=== PATIENT | male | born 1990 | race Caucasian/White ===

== ENCOUNTER 2017-12-19 19:28 | Inpatient (IN) ==
[2017-12-20] MEDS ORDERED: Potassium Chlor 20 mEq Premix 20 MEQ/100 ML PIGGYBACK IV.SIG PRN ×6 (01:28)
[2017-12-20] MEDS ORDERED: Sodium Phosphate Inj 15 MMOL in Sodium Chlor 0.9% Inj 100 ML IV.SIG PRN (01:28)
[2017-12-20] MEDS ORDERED: Potassium Chlor 40 mEq Premix 40 MEQ/100 ML PIGGYBACK IV.SIG PRN ×2 (01:28)
[2017-12-20] MEDS ORDERED: Morphine Sulfate Inj 2 MG/ML Vial IV.PUSH PRN (01:35)
[2017-12-20] MEDS ORDERED: Acetaminophen 325 MG Tablet PO PRN (01:35)
[2017-12-20] MEDS ORDERED: Temazepam 15 MG Capsule PO PRN (01:35)
[2017-12-20] MEDS ORDERED: Bisacodyl 10 MG Supp RECTAL PRN (01:35)
[2017-12-20] MEDS: Insulin Regular (For Infusion) 100 UNIT in Sodium Chlor 0.9% Inj 99 ML IV.CONT PRN ×2 (02:06→12:53)
[2017-12-20] MEDS: Sod Chloride 0.9% Inj 1,000 ML IV.CONT SCH ×6 (02:12→21:42)
[2017-12-20] MEDS: Dextrose 5%/NaCl 0.9% Inj 1,000 ML IV.CONT SCH ×5 (02:12→22:33)
[2017-12-20] MEDS: Heparin - SQ 10,000 UNITS/ML Vial SQ SCH ×4 (02:44→21:42)
--- NOTE | 2017-12-20 02:45 | P.HPCC ---
History of Present Illness Primary Care Physician: UNKNOWN History of Present Illness: 27-year-old male with history of type 1 diabetes presented to the emergency room at [place] for an evaluation of nausea and vomiting that started around noon today. Patient has history of DKA and states symptoms feel similar. States he was hospitalized a few weeks ago for the same. He reports taking his insulin this morning for blood sugar around 300. He denies fever, chills. Denies any other medical problems. He is a poor historian and difficult to extract information from. Inpatient Certification: I certify that the inpatient services were ordered in accordance with Medicare regulations governing the order. This includes certification that hospital inpatient services are reasonable and necessary and in the case of services not specified as inpatient-only under 42 CFR 419.22(n), that they are appropriately provided as inpatient services in accordance to with the 2-midnight benchmark under 43 CFR 412.3(e) Estimated Total Length of Stay (Days): 5 Plans for Post Hospital Care: Not yet determined Review of Systems All other systems reviewed negative except as stated in HPI [facility] - History History Provided By: Patient - Medical History Medical History: Medical History (Last Updated 12/19/17 @ 19:31 by Lourdes Gardner RN) Diabetes - Tobacco History Second Hand Smoke Exposure: Yes Smoking Status: Never smoker - Alcohol History How Often Do You Have a Drink Containing Alcohol: Never - Substance Use History Substance History: No History of Abuse Medications and Allergies Active Medications: Active Medications Acetaminophen (Tylenol) 650 mg PO Q6H PRN PRN Reason: PAIN 1-10 AND/OR FEVER >101F Al Hydroxide/Mg Hydroxide (Milk Of Stan Liq) 30 ml PO Q12H PRN PRN Reason: Mild Constipation Albuterol (Duoneb Neb (Prn)) 1 ampul NEB Q2HR NEB PRN PRN Reason: WHEEZING Bisacodyl (Dulcolax Supp) 10 mg RECTAL DAILY PRN PRN Reason: SEVERE CONSITIPATION Chlorhexidine Gluconate (Chlorhexidine 2% Cloth) 3 pack TOPICAL DAILY@0400 PRN PRN Reason: Extra cloth needed Stop: 12/25/17 03:59 Chlorhexidine Gluconate (Chlorhexidine 2% Cloth) 3 pack TOPICAL DAILY@0400 MENDEL Stop: 12/25/17 03:59 Heparin Sodium (Porcine) (Heparin Inj) 5,000 units SQ Q8HR MENDEL Dextrose/Sodium Chloride (D5w/Normal Saline Inj) 1,000 mls @ 200 mls/hr IV.CONT .Q5H MENDEL Last Admin: 12/20/17 02:12 Dose: 200 mls/hr Insulin Human Regular 100 unit (/ Sodium Chloride) 100 mls @ 8 mls/hr IV.CONT TITRATE PRN; Protocol PRN Reason: See protocol Last Titration: 12/20/17 02:12 Dose: 8.5 units/hr, 8.5 mls/hr Sodium Chloride (Ns Inj) 1,000 mls @ 250 mls/hr IV.CONT .Q4H MENDEL Last Admin: 12/20/17 02:12 Dose: Not Given Potassium Chloride (Kcl 40 Meq Premix Inj) 40 meq in 100 mls @ 100 mls/hr IV.SIG Q1H PRN PRN Reason: for Initial K+ ONLY < 3.5 Potassium Chloride (Kcl 40 Meq Premix Inj) 40 meq in 100 mls @ 50 mls/hr IV.SIG Q2H PRN PRN Reason: for Subsequent K+ < 3.5 Potassium Chloride (Kcl 20 Meq Premix Inj) 20 meq in 100 mls @ 100 mls/hr IV.SIG Q1H PRN PRN Reason: for K+ 3.5 to 4.4 Potassium Chloride (Kcl 20 Meq Premix Inj) 20 meq in 100 mls @ 100 mls/hr IV.SIG Q1H PRN PRN Reason: for K+ 4.5 to 5 Potassium Chloride (Kcl 20 Meq Premix Inj) 20 meq in 100 mls @ 50 mls/hr IV.SIG Q2H PRN PRN Reason: for Subsequent K+ < 3.5 Potassium Chloride (Kcl 20 Meq Premix Inj) 20 meq in 100 mls @ 50 mls/hr IV.SIG Q2H PRN PRN Reason: for K+ 3.5 to 4.4 Potassium Chloride (Kcl 20 Meq Premix Inj) 20 meq in 100 mls @ 50 mls/hr IV.SIG Q2H PRN PRN Reason: for K+ 4.5 to 5 Sodium Phosphate 15 mmol/ (Sodium Chloride) 105 mls @ 25 mls/hr IV.SIG UNSCH PRN PRN Reason: for Phosphate Level < 1.0 Potassium Chloride (Kcl 20 Meq Premix Inj) 20 meq in 100 mls @ 50 mls/hr IV.SIG Q2H PRN PRN Reason: for Initial K+ ONLY < 3.5 Lactulose (Lactulose Liq) 30 ml PO DAILY PRN PRN Reason: SEVERE CONSITIPATION Morphine Sulfate (Morphine Inj) 2 mg IV.PUSH Q2H PRN PRN Reason: PAIN SCALE 6 TO 10 Ondansetron HCl (Zofran Inj) 4 mg IV.PUSH Q6H PRN PRN Reason: NAUSEA OR VOMITING Senna/Docusate Sodium (Mmae-Colace) 1 tab PO BID MENDEL Sennosides (Senokot) 17.2 mg PO Q12H PRN PRN Reason: Moderate Constipation Sodium Bicarbonate (Sodium Bicarbonate 8.4% Inj) 50 meq IV.PUSH UNSCH PRN PRN Reason: for pH 6.9 to 7.0 Sodium Bicarbonate (Sodium Bicarbonate 8.4% Inj) 100 meq IV.PUSH UNSCH PRN PRN Reason: for pH less than 6.9 Sodium Chloride (Ns Flush) 2 ml IV.FLUSH BID MENDEL Sodium Chloride (Ns Flush) 2 ml IV.FLUSH PRN PRN PRN Reason: FLUSH AFTER USING IV ACCESS Temazepam (Restoril) 15 mg PO HS PRN PRN Reason: INSOMNIA Allergies Allergy/AdvReac Type Severity Reaction Status Date / Time No Known Allergies Allergy Verified 12/19/17 19:30 Home Medications Medication Instructions Recorded Confirmed Type insulin aspart U-100 [Novolog 12/19/17 History U-100 Insulin aspart] insulin glargine [Lantus U-100 12/19/17 History Insulin] Exam Vital signs: Vital Signs 12/20/17 01:28 12/20/17 02:00 Temperature 98 F Pulse Rate 118 H 130 H Respiratory Rate 13 14 Blood Pressure 165/81 H Pulse Oximetry 100 96 Intake & Output 12/19/17 12/19/17 12/20/17 06:59 18:59 06:59 Weight 84 kg Other: Weight On Admission 84 kg - Constitutional mild distress - Routine HEENT Exam Head: Present: atraumatic Eye: Present: PERRL ENT: Present: mucous membranes moist - Routine Neck Exam Present: supple, full ROM. Absent: JVD - Routine Chest/Breast/Axilla Exam Chest wall: Absent: tenderness - Routine Respiratory Exam Absent: accessory muscle use, rhonchi, stridor, wheezes - Routine Cardiovascular Exam Present: RRR, S1, S2 - Routine Abdominal Exam Present: soft, normoactive bowel sounds. Absent: tenderness, distended - Routine Extremities Exam Absent: cyanosis, clubbing, edema - Routine Skin Exam Present: intact. Absent: cyanosis, erythema - Routine Neurological Exam Present: alert, oriented X3, moving all extremities Septic Shock Reassessment Septic shock perfusion: reassessment completed Caprini VTE Risk Assessment Caprini VTE Risk Assessment: Moderate/High Risk (score >= 2) Caprini Risk Assessment Model: Point Value = 1 Point Value = 2 Point Value = 3 Point Value = 5 Age 41-60 Minor surgery BMI > 25 kg/m2 Swollen legs Varicose veins or History of unexplained or recurrent spontaneous Oral contraceptives or hormone replacement Sepsis (< 1 month) Serious lung disease, including pneumonia (< 1 month) Abnormal pulmonary function Acute myocardial infarction Congestive heart failure (< 1 month) History of inflammatory bowel disease Medical patient at bed rest Age 61-74 Arthroscopic surgery Major open surgery (> 45 min) Laparoscopic surgery (> 45 min) Malignancy Confined to bed (> 72 hours) Immobilizing plaster cast Central venous access Age >= 75 History of VTE Family history of VTE Factor V Leiden Prothrombin [id number] Lupus anticoagulant Anticardiolipin antibodies Elevated serum homocysteine Heparin-induced thrombocytopenia Other congenital or acquired thrombophilia Stroke (< 1 month) Elective arthroplasty Hip, pelvis, or leg fracture Acute spinal cord injury (< 1 month) Prophylaxis Regimen: Total Risk Factor Score Risk Level Prophylaxis Regimen 0-1 Low Early ambulation 2 Moderate Order ONE of the following: *Sequential Compression Device (SCD) *Heparin 5000 units SQ BID 3-4 Higher Order ONE of the following medications: *Heparin 5000 units SQ TID *Enoxaparin/Lovenox 40 mg SQ daily (WT < 150 kg, CrCl > 30 mL/min) *Enoxaparin/Lovenox 30 mg SQ daily (WT < 150 kg, CrCl > 10-29 mL/min) *Enoxaparin/Lovenox 30 mg SQ BID (WT < 150 kg, CrCl > 30 mL/min) AND/OR *Sequential Compression Device (SCD) 5 or more Highest Order ONE of the following medications: *Heparin 5000 units SQ TID (Preferred with Epidurals) *Enoxaparin/Lovenox 40 mg SQ daily (WT < 150 kg, CrCl > 30 mL/min) *Enoxaparin/Lovenox 30 mg SQ daily (WT < 150 kg, CrCl > 10-29 mL/min) *Enoxaparin/Lovenox 30 mg SQ BID (WT < 150 kg, CrCl > 30 mL/min) AND *Sequential Compression Device (SCD) Assessment and Plan - Assessment and Plan Plan: Diabetic ketoacidosis -Insulin drip per unit protocol -Frequent BMPs -Monitor potassium and replace -IV hydration -N.p.o. -Troponins and EKGs -CXR -Blood culture and urine culture DVT GI prophylaxis -Teds SCDs -Subcu heparin -Pepcid 35 minutes of critical care H&P: Quality - VTE Deep Vein Thrombosis/Pulmonary Embolism Present on Admission: No
[2017-12-20] MEDS: Morphine Sulfate Inj 2 MG/ML Vial IV.PUSH PRN ×4 (02:59→18:21)
[2017-12-20] MEDS: Chlorhexidine Gluconate 2% 1 Pack (2 Cloths) TOPICAL SCH (03:00)
[2017-12-20] MEDS ORDERED: Chlorhexidine Gluconate 2% 1 Pack (2 Cloths) TOPICAL PRN (04:00)
[2017-12-20 12:09] LABS: Baso % (Auto) 0.6 % (0.0-2.0); Eos % (Auto) 0.6 % (0.0-4.0); Hematocrit 45.2 % (39.0-51.0); Lymph # (Auto) 1.7 th/mm3 (1.0-4.8); Lymph % (Auto) 22.7 % (9.0-44.0); Mean Corpuscular HGB Conc 33.1 % (32.0-36.0); Mean Corpuscular Hemoglobin 30.5 pg (27.0-34.0); Mean Corpuscular Volume 91.9 fL (80.0-100.0); Mean Platelet Volume 7.7 fL (7.0-11.0); Mono # (Auto) 0.7 th/mm3 (0.0-0.9); Mono % (Auto) 9.4 % (0.0-8.0); Neut # (Auto) 4.9 th/mm3 (1.8-7.7); Neut % (Auto) 66.7 % (16.0-70.0); Platelet Count 223 th/mm3 (150-450); Red Blood Count 4.92 mil/mm3 (4.50-5.90); Red Cell Distribution Width 16.3 % (11.6-17.2); White Blood Count 7.3 th/mm3 (4.0-11.0)
--- NOTE | 2017-12-20 12:30 | ECG ---
Date Performed: 12/20/2017 Time Performed: 06:49:46 PTAGE: 27 years EKG: Sinus rhythm NONSPECIFIC T-WAVE ABNORMALITY BORDERLINE ECG NO PREVIOUS TRACING DOCTOR: Kemar De Guzman Interpretating Date/Time 12/20/2017 12:28:22
[2017-12-20 12:43] LABS: Albumin 3.1 g/dL (3.4-5.0); Anion Gap 16 meq/L (5-15); Aspartate Aminotransferase 12 U/L (15-37); Blood Urea Nitrogen 4 mg/dL (7-18); Calcium 8.1 mg/dL (8.5-10.1); Carbon Dioxide 10.9 meq/L (21.0-32.0); Chloride 110 meq/L (98-107); Glomerular Filtration Rate Greater Than 89 mL/min (>89); Glucose,Random 211 mg/dL (74-106); Lipase 28 U/L (73-393); Magnesium 1.6 mg/dL (1.5-2.5); Potassium 4.5 meq/L (3.5-5.1); Sodium 137 meq/L (136-145)
[2017-12-20 12:46] LABS: Alanine Aminotransferase 14 U/L (12-78); Alkaline Phosphatase 98 U/L (45-117); Beta Hydroxybutyric Acid 3.13 mmol/L (0.00-0.39); Phosphorus 1.8 mg/dL (2.5-4.9); Total Protein 6.8 g/dL (6.4-8.2)
[2017-12-20] MEDS: Senna/Docusate Sodium 8.6/50 MG Tablet PO SCH ×2 (13:22→20:24)
[2017-12-20 14:09] LABS: ABG Base Excess -8.8 mmol/L (-2-2); ABG PCO2 34 mmHg (38-42); ABG PO2 95 mmHG (61-120)
[2017-12-20 19:33] LABS: Hemoglobin A1c 10.1 % (4.3-6.0)
[2017-12-20 22:04] LABS: Anion Gap 10 meq/L (5-15); Beta Hydroxybutyric Acid 1.41 mmol/L (0.00-0.39); Blood Urea Nitrogen 3 mg/dL (7-18); Calcium 8.1 mg/dL (8.5-10.1); Carbon Dioxide 18.3 meq/L (21.0-32.0); Chloride 117 meq/L (98-107); Glomerular Filtration Rate Greater Than 89 mL/min (>89); Glucose,Random 117 mg/dL (74-106); Magnesium 1.6 mg/dL (1.5-2.5); Phosphorus 1.5 mg/dL (2.5-4.9); Potassium 3.3 meq/L (3.5-5.1); Sodium 145 meq/L (136-145)
[2017-12-20] MEDS ORDERED: DC Insulin drip 2 hrs post basal insulin dose OTHER ONE ×2 (22:24→22:27)
[2017-12-20] MEDS ORDERED: DC previous DKA orders (HMC 1917) OTHER ONE ×2 (22:24→22:27)
[2017-12-20] MEDS ORDERED: Dextrose 50% in Water 50 ML Vial IV.PUSH PRN (22:24)
[2017-12-20] MEDS ORDERED: Insulin Detemir Inj 1,000 UNIT/10 ML Vial SQ SCH (22:30)
[2017-12-21] MEDS ORDERED: Potassium Chloride Inj 20 MEQ in Sodium Chlor 0.9% Inj 100 ML IV.SIG SCH ×2
[2017-12-21] MEDS: Potassium Chlor 20 mEq Premix 20 MEQ/100 ML PIGGYBACK IV.SIG SCH ×4 (00:22→08:43)
[2017-12-21 01:55] LABS: Anion Gap 14 meq/L (5-15); Blood Urea Nitrogen 2 mg/dL (7-18); Calcium 8.7 mg/dL (8.5-10.1); Carbon Dioxide 16.1 meq/L (21.0-32.0); Chloride 117 meq/L (98-107); Glomerular Filtration Rate Greater Than 89 mL/min (>89); Glucose,Random 73 mg/dL (74-106); Magnesium 1.4 mg/dL (1.5-2.5); Phosphorus 1.3 mg/dL (2.5-4.9); Potassium 3.6 meq/L (3.5-5.1)
[2017-12-21 01:56] LABS: Beta Hydroxybutyric Acid 2.66 mmol/L (0.00-0.39)
[2017-12-21 02:04] LABS: Sodium 147 meq/L (136-145)
[2017-12-21] MEDS: Chlorhexidine Gluconate 2% 1 Pack (2 Cloths) TOPICAL SCH (05:12)
[2017-12-21] MEDS: Heparin - SQ 10,000 UNITS/ML Vial SQ SCH (05:13)
[2017-12-21 05:29] VITALS: BP 114/56; TEMP 98.1
[2017-12-21 06:07] VITALS: O2SAT 84
[2017-12-21] MEDS ORDERED: Insulin NovoLOG Aspart Correctional Sugar Inj SQ SCH (08:00)
[2017-12-21 08:42] LABS: Anion Gap 12 meq/L (5-15); Blood Urea Nitrogen 2 mg/dL (7-18); Calcium 8.5 mg/dL (8.5-10.1); Chloride 116 meq/L (98-107); Glomerular Filtration Rate Greater Than 89 mL/min (>89); Glucose,Random 124 mg/dL (74-106); Magnesium 1.4 mg/dL (1.5-2.5); Phosphorus 1.8 mg/dL (2.5-4.9); Potassium 3.4 meq/L (3.5-5.1); Sodium 146 meq/L (136-145)
[2017-12-21 08:45] VITALS: PULSE 122; RESP 20
== END 2017-12-21 10:10 | disposition left against medical advice (07) ==
LOC: NEDDLT 19:28 → HIMC 12-20 01:12
PROVIDERS: ADMIT Hospitalist; ATTEND Hospitalist